=== PATIENT | male | born 1990 ===

== ENCOUNTER 2025-01-16 05:51 | Day surgery (SDC) | payer OTHER, SELFPAY ==
[2025-01-16] VITALS (9 sets, daily range): BP systolic 121–134; BP diastolic 73–87; BMI 24.4
[2025-01-16] MEDS: TYLENOL 1000 MG PO (06:25)
[2025-01-16] MEDS: CELEBREX 200 MG PO (06:25)
[2025-01-16] MEDS: NORMOSOL-R/PLASMALYTE-A 1000 IV (06:36)
--- NOTE | 2025-01-17 09:39 | OR.RPT ---
Operative Report
Operative Report
Operative Report
Patient Name: Joshua Sanders

Date of Surgery: 01/16/2025
Surgeon: Ion Roberts DPM
Circuit Clerk: Ana Paula Chan DPM
Pre-operative diagnosis:
Right Achilles tendon rupture
Post-operative diagnosis:
Same as preoperative
Procedure:
Right Achilles tendon repair (CPT 20474)
Anesthesia:
General anesthesia with local block of 20ccs of 0.5% bupivacaine plain
Hemostasis:
Pneumatic thigh tourniquet which remained inflated to 300mmHg for the entirety of the procedure
Estimated blood loss:
Minimal
Specimens:
None
Implants:
Arthrex PARS system and SpeedBridge Achilles repair system
Complications:
None
Indications for Procedure:
The patient is a 34 year old male who sustained an acute right Achilles tendon rupture with significant weakness, positive Orellana test, and palpable gap along the tendon. MRI confirmed a 4cm tendon gap and underlying severe tendinosis. Given the
patient�s activity level and the extent of the rupture, surgical repair was recommended to restore strength, reduce the risk of tendon elongation, and improve long-term functional outcomes. The Arthrex PARS and SpeedBridge system was selected to
provide strong fixation with minimal soft-tissue disruption.
Description of Procedure:
The patient was brought to the operating room, placed supine, and given general anesthesia with a local block of 20ccs of 0.5% bupivacaine plain. After induction, the patient was repositioned prone with all pressure points well padded. A pneumatic
thigh tourniquet was applied and the right lower extremity was prepped and draped in the usual sterile fashion. The tourniquet was inflated following exsanguination.
A horizontal incision was created just proximal to the level of the Achilles tendon rupture. Blunt dissection was carried through the subcutaneous layer, taking care to preserve the sural nerve. The paratenon was exposed and incised, revealing a
complete midsubstance rupture of the Achilles tendon with frayed edges.
The proximal and distal tendon stumps were mobilized. The Arthrex PARS jig was applied to the proximal tendon segment, and a series of PARS sutures were passed using the system�s standardized suture-passing pattern to ensure uniform anchoring of the
tendon fibers. The sutures were and tensioned appropriately.
Attention was then directed to the calcaneal insertion site. Two rotor pilot holes were drilled in the posterior calcaneus and sutures from the PARS repair were then tensioned and passed into the distal tendon stump to restore proper tendon length and
alignment. The PARS sutures were placed into the SpeedBridge anchors and subsequently were placed securely into bone while the foot was in plantarflexion.
The repair demonstrated excellent strength, tendon continuity, and appropriate tension with the ankle positioned in slight plantarflexion.
The wound was irrigated thoroughly with sterile saline. The paratenon was repaired with 2-0 vicryl to provide additional biologic protection. The subcutaneous tissues were closed with 3-0 vicryl sutures, and the skin was closed with 3-0 nylon. A
sterile dressing was applied, followed by a well-padded posterior splint with the ankle in plantarflexion.
The patient tolerated the procedure well with no complications.
Postoperative Plan:
� Non�weight bearing to the right lower extremity in plantarflexed splint
� Keep dressing clean, dry, and intact
� Elevation and icing for edema control
� Follow-up in 10�14 days for suture removal and transition to a boot with heel wedges
� Gradual reduction of heel wedges and initiation of rehabilitation per Achilles protocol over subsequent visits
== END 2025-01-16 10:44 | disposition home or self-care (01) ==
LOC: SDS 05:51
PROVIDERS: ATTENDING PHYSICIAN Student in an Organized Health Care Education/Training Program
DX: S86.011A Strain of right Achilles tendon, initial encounter (principal); X58.XXXA Exposure to other specified factors, initial encounter
CPT/HCPCS: 27650